=== PATIENT | male | born 2000 | race Two or more races ===

== ENCOUNTER 2021-06-28 09:32 | Emergency (ER) | payer BC, OTHER ==
[~2021-06-28] VITALS: Ht 185.4 cm; Wt 65.8 kg
[2021-06-28 10:00] VITALS: BP 128/80
[2021-06-28] MEDS ORDERED: IPRATROPIUM BROM 0.5 MG/2.5ML INH SOL NEB ONE (10:15)
[2021-06-28] MEDS ORDERED: ALBUTEROL SULF 2.5 MG/0.5ML(0.5%) NEB SOLN NEB ONE (10:15)
== END 2021-06-28 10:47 | disposition home or self-care (01) ==
LOC: ER 09:32
DX: J45.901 Unspecified asthma with (acute) exacerbation (principal); F17.210 Nicotine dependence, cigarettes, uncomplicated; F12.10 Cannabis abuse, uncomplicated
CPT/HCPCS: 94640; 99283; J7644